=== PATIENT | female | born 1980 | race Caucasian/White ===

== ENCOUNTER 2017-08-11 02:41 | Inpatient (IN) | payer OTHER ==
[2017-08-11] MEDS ORDERED: Sodium Chloride 0.9% 1,000 ML IV STA ×2 (03:10→06:18)
[2017-08-11] MEDS ORDERED: HYDROmorphone 1 mg/ml ISec IVP STA ×2 (03:10→05:49)
--- NOTE | 2017-08-11 03:11 | ED PDOC ---
Arrival/HPI - General Chief Complaint: Abdominal Pain Time Seen by Provider: 08/11/17 03:03 Historian: Patient - History of Present Illness Narrative History of Present Illness (Text): 08/11/17 03:09 Chelsi Tamayo is a 37 year old female, who presents to the emergency department complaining of vomiting and upper abdominal pain tonight. Patient states that she ate liver for dinner earlier this evening which may be the cause of her symptoms. Patient denies any diarrhea, fevers, chills, urinary symptoms, or any other complaint at this time. Time/Duration: 1-3 hours Symptom Onset: Gradual Symptom Course: Unchanged Severity Level: Moderate Activities at Onset: Rest Context: Home Past Medical History - Provider Review Nursing Documentation Reviewed: Yes Family/Social History - Physician Review Nursing Documentation Reviewed: Yes Family/Social History: No Known Family HX Allergies/Home Meds Allergies/Adverse Reactions: Allergies No Known Allergies Allergy (Verified 08/11/17 11:39) Home Medications: Home Meds Medication Instructions Recorded Confirmed No Known Home Med 08/11/17 08/11/17 Review of Systems - Physician Review All systems were reviewed & negative as marked: Yes - Review of Systems Constitutional: absent: Fevers, Night Sweats Eyes: absent: Vision Changes ENT: absent: Hearing Changes Respiratory: absent: SOB, Cough Cardiovascular: absent: Chest Pain Gastrointestinal: Abdominal Pain (Upper abdominal pain), Vomiting Genitourinary Female: absent: Dysuria, Frequency Musculoskeletal: absent: Arthralgias, Back Pain Skin: absent: Rash, Pruritis Neurological: absent: Headache, Dizziness Endocrine: absent: Diaphoresis Hemo/Lymphatic: absent: Adenopathy Psychiatric: absent: Anxiety, Depression Physical Exam Vital Signs Reviewed: Yes Vital Signs Temp Pulse Resp BP Pulse Ox 08/11/17 07:32 98.8 F 101 H 16 125/81 99 08/11/17 03:30 76 16 124/76 99 08/11/17 03:28 98.4 F Temperature: Afebrile Blood Pressure: Normal Pulse: Regular Respiratory Rate: Normal Appearance: Positive for: Well-Appearing, Non-Toxic, Comfortable Pain Distress: None Mental Status: Positive for: Alert and Oriented X 3 - Systems Exam Head: Present: Atraumatic, Normocephalic Pupils: Present: PERRL Extroacular Muscles: Present: EOMI Conjunctiva: Present: Normal Mouth: Present: Moist Mucous Membranes Neck: Present: Normal Range of Motion Respiratory/Chest: Present: Clear to Auscultation, Good Air Exchange. No: Respiratory Distress, Accessory Muscle Use Cardiovascular: Present: Regular Rate and Rhythm, Normal S1, S2. No: Murmurs Abdomen: Present: Tenderness (right upper abdomen), Normal Bowel Sounds. No: Distention, Peritoneal Signs Back: Present: Normal Inspection Upper Extremity: Present: Normal Inspection. No: Cyanosis, Edema Lower Extremity: Present: Normal Inspection. No: Edema Neurological: Present: GCS=15, CN II-XII Intact, Speech Normal Skin: Present: Warm, Dry, Normal Color. No: Rashes Psychiatric: Present: Alert, Oriented x 3, Normal Insight, Normal Concentration Medical Decision Making ED Course and Treatment: 08/11/17 03:14 Impression: 37 year old female complaining of vomiting and upper abdominal pain tonight. Differential Diagnosis included but are not limited to: Plan: -- Labs -- Dilaudid, Pepcid, Zofran, and IV fluids -- Reassess and disposition Progress Notes: 08/11/17 06:16 Case was d/w .Accepts to her service .Request / on consult. - Lab Interpretations Lab Results: 08/11/17 03:50 08/11/17 03:50 Lab Results 08/11/17 03:50: WBC 12.5 H, RBC 4.88, Hgb 12.6, Hct 37.5, MCV 76.8 L, MCH 25.8, MCHC 33.6, RDW 15.4 H, Plt Count 378, MPV 10.1 08/11/17 03:50: Sodium 140, Potassium 3.8, Chloride 104, Carbon Dioxide 21, Anion Gap 19, BUN 22 H, Creatinine 0.7, Est GFR ( Amer) > 60, Est GFR ( Non-Af Amer) > 60, Random Glucose 151 H, Calcium 10.1, Total Bilirubin 0.6, AST 30, ALT 22, Alkaline Phosphatase 79, Total Protein 9.1 H, Albumin 4.9 H, Globulin 4.2, Albumin/Globulin Ratio 1.2, Lipase 130 I have reviewed the lab results: Yes - RAD Interpretation Radiology Orders: 08/11/17 04:19 GALLBLADDER & PANCREAS [US] Stat - Medication Orders Current Medication Orders: Hydromorphone HCl (Dilaudid) 0.5 mg IVP Q6H PRN PRN Reason: Pain, severe (8-10) Lactated Ringer's (Lactated Ringer's) 1,000 mls @ 120 mls/hr IV .Q8H20M [facility] Ketorolac Tromethamine (Toradol) 30 mg IVP Q6 PRN PRN Reason: Pain, moderate (4-7) Ondansetron HCl (Zofran Inj) 4 mg IVP Q6 PRN PRN Reason: Nausea/Vomiting Ondansetron HCl (Zofran Inj) 4 mg IVP ONCE PRN PRN Reason: Nausea/Vomiting Oxycodone/Acetaminophen (Percocet 5/325 Mg Tab) 2 tab PO Q4H PRN PRN Reason: Pain, Mild (1-3) Stop: 08/14/17 13:12 Pantoprazole Sodium (Protonix Inj) 40 mg IVP DAILY [facility] Last Admin: 08/11/17 10:30 Dose: Not Given Non-Admin Reason: Patient in OR/Vascular Discontinued Medications Famotidine (Pepcid) 20 mg IVP STAT STA Stop: 08/11/17 03:11 Last Admin: 08/11/17 03:23 Dose: 20 mg IVP Administration Document 08/11/17 03:23 RE (Rec: 08/11/17 03:24 RE [id number]) Charges for Administration # of IVP Administrations 1 Hydromorphone HCl (Dilaudid) 1 mg IVP STAT STA Stop: 08/11/17 03:11 Last Admin: 08/11/17 03:23 Dose: 1 mg MAR Pain Assessment Document 08/11/17 03:23 RE (Rec: 08/11/17 03:23 RE [id number]) Pain Reassessment Is this a pain reassessment? No Description Pain Behavior Moaning IVP Administration Document 08/11/17 03:23 RE (Rec: 08/11/17 03:23 RE [id number]) Charges for Administration # of IVP Administrations 1 Hydromorphone HCl (Dilaudid) 1 mg IVP STAT STA Stop: 08/11/17 05:50 Last Admin: 08/11/17 06:30 Dose: 1 mg MAR Pain Assessment Document 08/11/17 06:30 SC (Rec: 08/11/17 06:50 SC [id number]) Pain Reassessment Is this a pain reassessment? Yes Sleep Is patient sleeping during reassessment? No Presence of Pain Presence of Pain Yes Pain Scale Used Pain Scale Used Numeric Description Intensity of Pain at present 5 IVP Administration Document 08/11/17 06:30 SC (Rec: 08/11/17 06:50 SC [id number]) Charges for Administration # of IVP Administrations 1 Re-Assess: ROSHNI Pain Assessment Document 08/11/17 07:30 SRE (Rec: 08/11/17 07:44 SRE [id number]) Pain Reassessment Is this a pain reassessment? Yes Sleep Is patient sleeping during reassessment? No Presence of Pain Presence of Pain Yes Pain Scale Used Pain Scale Used Numeric Location Pain Location Body Site Abdomen Description Description Constant Hydromorphone HCl (Dilaudid) 0.5 mg IVP Q15M PRN PRN Reason: Pain, moderate (4-7) Stop: 08/11/17 14:57 Sodium Chloride (Sodium Chloride 0.9%) 1,000 mls @ 999 mls/hr IV .Q1H1M STA Stop: 08/11/17 04:10 Last Admin: 08/11/17 05:29 Dose: 999 mls/hr eMAR Start Stop Document 08/11/17 05:29 RE (Rec: 08/11/17 05:30 RE [id number]) Intravenous Solution Start Date 08/11/17 Start Time 03:00 End Date 08/18/17 End time 05:30 Total Infusion Time 71904 Sodium Chloride (Sodium Chloride 0.9%) 1,000 mls @ 100 mls/hr IV .Q10H STA Stop: 08/11/17 16:17 Last Admin: 08/11/17 08:05 Dose: 100 mls/hr eMAR Start Stop Document 08/11/17 08:05 SRE (Rec: 08/11/17 08:05 SRE [id number]) Intravenous Solution Start Date 08/11/17 Start Time 07:15 Ceftriaxone Sodium (Rocephin 1 Gram Ivpb (D5w)) 1 gm in 100 mls @ 200 mls/hr IVPB STAT STA PRN Reason: Protocol Stop: 08/11/17 08:23 Last Admin: 08/11/17 10:30 Dose: Not Given Non-Admin Reason: Patient in OR/Vascular Ondansetron HCl (Zofran Inj) 4 mg IVP ONCE ONE Stop: 08/11/17 03:11 Last Admin: 08/11/17 03:24 Dose: 4 mg IVP Administration Document 08/11/17 03:24 RE (Rec: 08/11/17 03:24 RE [id number]) Charges for Administration # of IVP Administrations 1 Ondansetron HCl (Zofran Inj) 4 mg IVP ONCE ONE Stop: 08/11/17 05:50 Last Admin: 08/11/17 06:30 Dose: 4 mg IVP Administration Document 08/11/17 06:30 SC (Rec: 08/11/17 06:50 SC [id number]) Charges for Administration # of IVP Administrations 1 Pneumococcal Polyvalent Vaccine (Pneumovax 23 Vaccine) 0.5 ml IM .ONCE ONE Stop: 08/11/17 15:53 - Scribe Statement The provider has reviewed the documentation as recorded by the Farida Simon Provider Scribe Attestation: All medical record entries made by the Artemioibpadmini were at my direction and personally dictated by me. I have reviewed the chart and agree that the record accurately reflects my personal performance of the history, physical exam, medical decision making, and the department course for this patient. I have also personally directed, reviewed, and agree with the discharge instructions and disposition. Disposition/Present on Arrival - Present on Arrival Any Indicators Present on Arrival: No History of DVT/PE: No History of Uncontrolled Diabetes: No Urinary Catheter: No History of Decub. Ulcer: No History Surgical Site Infection Following: None - Disposition Have Diagnosis and Disposition been Completed?: Yes Diagnosis: Biliary colic, Intractable abdominal pain, Cholelithiasis Disposition: HOSPITALIZED Disposition Time: 06:15 Patient Problems: Current Active Problems Problem Status Onset Biliary colic Acute Cholelithiasis Acute Intractable abdominal pain Acute Condition: STABLE
[2017-08-11 04:13] LABS: ALB/GLOB RATIO 1.2 (1.1-1.8); BILIRUBIN,TOTAL 0.6 mg/dL (0.2-1.3); CALCIUM 10.1 mg/dL (8.4-10.5); GFR AFRICAN-AMERICAN > 60; GLUCOSE,RANDOM 151 mg/dL (70-110); LIPASE 130 U/L (23-300); TOTAL PROTEIN 9.1 g/dL (5.8-8.3)
[2017-08-11 04:16] LABS: HEMATOCRIT 37.5 % (36.0-48.0); MEAN CELL VOLUME 76.8 fl (80.0-105.0); MEAN CORPUSCULAR HEMOGLOBIN 25.8 pg (25.0-35.0); MEAN CORPUSCULAR HGB CONC 33.6 g/dl (31.0-37.0); MEAN PLATELET VOLUME 10.1 fl (7.0-11.0); RED CELL DISTRIBUTION WIDTH 15.4 % (11.5-14.5); WHITE BLOOD COUNT 12.5 10^3/ul (4.5-11.0)
[2017-08-11 04:20] LABS: ALKALINE PHOSPHATASE 79 U/L (38-126); ALT/SGPT 22 U/L (7-56); AST/SGOT 30 U/L (14-36); BLOOD UREA NITROGEN 22 mg/dL (7-21); CARBON DIOXIDE 21 mmol/L (21-33); CHLORIDE 104 mmol/L (98-107); POTASSIUM 3.8 mmol/L (3.6-5.0); SODIUM 140 mmol/L (132-148)
--- NOTE | 2017-08-11 05:26 | US ---
EXAM: US Abdomen Limited, Right Upper Quadrant CLINICAL HISTORY: 37 years old, female; Pain; Abdominal pain; Epigastric TECHNIQUE: Real-time ultrasound of the right upper quadrant with image documentation. COMPARISON: No relevant prior studies available. FINDINGS: Liver: Visualized liver shows no focal lesions. Portal vein demonstrates hepatopetal flow. Liver demonstrates slightly increased echogenicity as can be seen in fatty infiltration or hepatocellular disease. No intrahepatic bile duct dilation. Gallbladder: No gallbladder wall thickening. There is a gallstone at the gallbladder neck measuring 0.8 CM and demonstrating shadowing. Sonographic Main's sign is negative. Common bile duct: Common bile duct is normal in caliber measuring 0.4 CM. No stones. No dilation. Pancreas: The pancreas is normal. Right kidney: Right kidney measures 11.2 CM. No stones. No hydronephrosis. Visualized aorta and IVC appear unremarkable. IMPRESSION: 1. No acute findings. 2. Cholelithiasis. No gallbladder wall thickening or pericholecystic fluid. Negative sonographic Amin's sign.
[2017-08-11] MEDS ORDERED: cefTRIAXone 1 gm 1 GM/100 ML BAG IVPB STA (07:54)
[2017-08-11] MEDS ORDERED: Lactated Ringer's 1,000 ML IV SCH (08:00)
--- NOTE | 2017-08-11 08:01 | CP.PCM.CON ---
<Cristopher Chery - Last Filed: 08/11/17 08:01> History of Present Illness - History of Present Illness History of Present Illness: Surgery 37 F w no sig PMH came with RUQ pain and vomiting that started yesterday. Pain started after she ate last night, then she started to vomit multiple times. Pain radiates to her R back. Non bloody non bilious. Denies F/C/D/CP/SOB/ hematochezia/hematemesis/melena/recent travel/sick contact. Pt had similar pain in the past but this is the worst. Surgery is consulted to evaluate for cholecystitis PSH: PMH: HTN Fhx: cholecystitis SS: No drugs, no etOH, no smoking LMP: 07/25 Review of Systems - Review of Systems Review of Systems: See HPI Past Patient History - Infectious Disease Hx of Infectious Diseases: None - Past Social History Smoking Status: Never Smoked - PSYCHIATRIC Hx Substance Use: No - SURGICAL HISTORY Hx Surgeries: Yes Hx Section: Yes Meds Allergies/Adverse Reactions: Allergies Allergy/AdvReac Type Severity Reaction Status Date / Time No Known Allergies Allergy Verified 08/11/17 11:39 - Medications Medications: Current Medications Hydromorphone HCl (Dilaudid) 0.5 mg IVP Q6H PRN PRN Reason: Pain, severe (8-10) Sodium Chloride (Sodium Chloride 0.9%) 1,000 mls @ 100 mls/hr IV .Q10H STA Stop: 08/11/17 16:17 Ceftriaxone Sodium (Rocephin 1 Gram Ivpb (D5w)) 1 gm in 100 mls @ 200 mls/hr IVPB STAT STA PRN Reason: Protocol Stop: 08/11/17 08:23 Lactated Ringer's (Lactated Ringer's) 1,000 mls @ 120 mls/hr IV .Q8H20M [facility] Ketorolac Tromethamine (Toradol) 30 mg IVP Q6 PRN PRN Reason: Pain, moderate (4-7) Ondansetron HCl (Zofran Inj) 4 mg IVP Q6 PRN PRN Reason: Nausea/Vomiting Pantoprazole Sodium (Protonix Inj) 40 mg IVP DAILY [facility] Physical Exam - Constitutional Appears: Non-toxic - Head Exam Head Exam: ATRAUMATIC, NORMAL INSPECTION, NORMOCEPHALIC - Eye Exam Eye Exam: EOMI, Normal appearance, PERRL Pupil Exam: NORMAL ACCOMODATION, PERRL - ENT Exam ENT Exam: Mucous Membranes Moist, Normal Exam - Neck Exam Neck exam: Positive for: Normal Inspection - Respiratory Exam Respiratory Exam: Clear to Auscultation Bilateral, NORMAL BREATHING PATTERN - Cardiovascular Exam Cardiovascular Exam: REGULAR RHYTHM - GI/Abdominal Exam GI & Abdominal Exam: Normal Bowel Sounds, Soft, Tenderness. absent: Distended, Firm, Guarding, Hernia Additional comments: RUQ TTP. EPigastric TTP. R back TTP - Extremities Exam Extremities exam: Positive for: normal inspection - Back Exam Back exam: NORMAL INSPECTION - Neurological Exam Neurological exam: Alert, CN II-XII Intact, Normal Gait, Oriented x3, Reflexes Normal - Psychiatric Exam Psychiatric exam: Normal Affect, Normal Mood - Skin Skin Exam: Dry, Intact, Normal Color, Warm Results - Vital Signs Recent Vital Signs: Last Vital Signs Temp 98.8 F 08/11/17 07:32 Pulse 101 H 08/11/17 07:32 Resp 16 08/11/17 07:32 BP 125/81 08/11/17 07:32 Pulse Ox 99 08/11/17 07:32 - Labs Result Diagrams: 08/11/17 03:50 08/11/17 03:50 Assessment & Plan - Assessment and Plan (Free Text) Assessment: Cholecystitis US: stone, pericholecystic fluids. WBC 13 LFT wnl -OR today 1030am -NPO -IVF -ABX -Protonix DW Dr. Pérez <Yg Pérez - Last Filed: 08/12/17 08:57> Meds - Medications Medications: Current Medications Hydromorphone HCl (Dilaudid) 0.5 mg IVP Q6H PRN PRN Reason: Pain, severe (8-10) Last Admin: 08/11/17 23:46 Dose: 0.5 mg Lactated Ringer's (Lactated Ringer's) 1,000 mls @ 120 mls/hr IV .Q8H20M [facility] Last Admin: 08/12/17 06:08 Dose: 120 mls/hr Ketorolac Tromethamine (Toradol) 30 mg IVP Q6 PRN PRN Reason: Pain, moderate (4-7) Ondansetron HCl (Zofran Inj) 4 mg IVP Q6 PRN PRN Reason: Nausea/Vomiting Ondansetron HCl (Zofran Inj) 4 mg IVP ONCE PRN PRN Reason: Nausea/Vomiting Oxycodone/Acetaminophen (Percocet 5/325 Mg Tab) 2 tab PO Q4H PRN PRN Reason: Pain, Mild (1-3) Stop: 08/14/17 13:12 Pantoprazole Sodium (Protonix Inj) 40 mg IVP DAILY [facility] Last Admin: 08/11/17 10:30 Dose: Not Given Results - Vital Signs Recent Vital Signs: Last Vital Signs Temp 100.4 F H 08/12/17 08:00 Pulse 104 H 08/12/17 08:00 Resp 20 08/12/17 08:00 BP 113/72 08/12/17 08:00 Pulse Ox 97 08/12/17 08:00 - Labs Result Diagrams: 08/12/17 06:00 08/12/17 06:00 Assessment & Plan - Assessment and Plan (Free Text) Assessment: pain/Leukocytosis-Pt insists on surgeery now/cannot tolerate further pain spoke with [employer] who advised him of coverage for Emergency This cnsult done under my direct supervision Eduardo Pérez MD FACS
[2017-08-11 08:07] LABS: PH,URINE 7.5 (4.7-8.0); URINE BILIRUBIN NEGATIVE (NEGATIVE); URINE BLOOD SMALL (NEGATIVE); URINE GLUCOSE (UA) NEGATIVE (NEGATIVE); URINE KETONE TRACE mg/dL (NEGATIVE); URINE LEUKOCYTE ESTERASE NEGATIVE Leu/uL (NEGATIVE); URINE PROTEIN TRACE mg/dL (<30 mg/dL)
[2017-08-11 08:09] LABS: URINE APPEARANCE SL CLOUDY (CLEAR); URINE COLOR YELLOW (YELLOW)
[2017-08-11 08:11] LABS: URINE BACTERIA FEW (NEG); URINE RBC 0 - 2 /hpf (0-2); URINE WBC NEGATIVE /hpf (0-6)
[2017-08-11 08:49] LABS: PARTIAL THROMBOPLASTIN TIME 27.6 Seconds (25.1-36.5)
[2017-08-11 09:00] LABS: INR 1.22 (0.93-1.08)
--- NOTE | 2017-08-11 09:15 | RAD ---
PROCEDURE: CHEST RADIOGRAPH, 1 VIEW HISTORY: Pre-op COMPARISON: None available. FINDINGS: LUNGS: Clear. PLEURA: No pneumothorax or pleural fluid seen. CARDIOVASCULAR: Normal. OSSEOUS STRUCTURES: No significant abnormalities. VISUALIZED UPPER ABDOMEN: Normal. OTHER FINDINGS: None. IMPRESSION: No active disease.
[2017-08-11] MEDS ORDERED: Bupivacaine 0.5% Inj(30mL) ONE (10:26)
[2017-08-11] MEDS ORDERED: Iohexol 240 (50 ml) ONE (10:26)
[2017-08-11] MEDS ORDERED: Midazolam 2 MG/2 ML VIAL ONE (10:47)
[2017-08-11] MEDS ORDERED: Propofol 10 mg/ml Inj (20 ML) ONE (10:47)
[2017-08-11] MEDS ORDERED: Rocuronium 10 mg/ml (5 ml) ONE (10:49)
[2017-08-11] MEDS ORDERED: Succinylcholine 200 mg/10 ml Inj IV ONE (10:57)
[2017-08-11] MEDS ORDERED: Neostigmine Methylsulfate 3mg/3ml Syringe IV ONE (12:26)
[2017-08-11] MEDS ORDERED: Glycopyrrolate 0.2 mg/ml (2ml vial) ONE (12:27)
[2017-08-11] MEDS ORDERED: HYDROmorphone 0.5 mg/0.5 ml ISec IVP PRN (12:57)
--- NOTE | 2017-08-11 13:05 | PCM.SURG1 ---
Surgeon's Initial Post Op Note - Surgeon's Notes Surgeon: Dr. Pérez Process Control Board Operator: Dr. Chery PGY2, Dr. Cobb PGY1 Type of Anesthesia: General Endo Pre-Operative Diagnosis: Acute Cholecystitis Operative Findings: see op note Post-Operative Diagnosis: as above Operation Performed: laparoscpic cholecystectomy w/ intraoperative cholangiogram Specimen/Specimens Removed: gall bladder; bile for culture Estimated Blood Loss: EBL {In ML}: 10 Drains Used: No Drains Post-Op Condition: Good Date of Surgery/Procedure: 08/11/17 Time of Surgery/Procedure: 13:05
[2017-08-11] MEDS ORDERED: Oxycodone/Acetaminophen 5/325 mg Tab PO PRN (13:11)
--- NOTE | 2017-08-11 13:28 | CP.PCM.CON ---
<Katelynn Richardson - Last Filed: 08/11/17 13:43> History of Present Illness - History of Present Illness History of Present Illness: S&E at bedside earlier today,request for GI eval for abdominal pain. HPI: This is a 37 year old female with no significant history came to the ER with sudden onset of RUQ pain, and episode of vomiting that started yesterday. at bedside. Patient endorses that she did have epigasric pain for 1 week prior and was tolerable. She recall eating late dinner, had liver, bread and avocado. Had multiple episode of vomiting at least "10"episodes. No hematemsis but did notice it was dark, thinking may be form the liver she ate. No fever or chill, no change in bowel habits, weight loss or anorexia. Had abdominal uS that reported GB stone neck of gallbladder, 0.8 cm, CBD 0.4cm, no stone, no GB wall thickening, CBD dilation. Seen by surgery awaiting OR. PMH: denies cardiac, respiratory or GI h/o PSH: Allergies: NKDA MEDS: reviewed as per MAR Family HX: denies Social HX: denies smoking, drugs, etoh ROS: systems reviewed with positive findings, see HPI. Past Patient History - Infectious Disease Hx of Infectious Diseases: None - Past Social History Smoking Status: Never Smoked - CARDIAC Hx Pacemaker: No - NEUROLOGICAL Hx Paralysis: No - HEMATOLOGICAL/ONCOLOGICAL Hx Blood Transfusions: No Hx Blood Transfusion Reaction: No - MUSCULOSKELETAL/RHEUMATOLOGICAL Hx Musculoskeletal Disorders: No - PSYCHIATRIC Hx Emotional Abuse: No Hx Physical Abuse: No Hx Substance Use: No - SURGICAL HISTORY Hx Surgeries: Yes - ANESTHESIA Hx Anesthesia Reactions: No Hx Malignant Hyperthermia: No Meds Allergies/Adverse Reactions: Allergies Allergy/AdvReac Type Severity Reaction Status Date / Time No Known Allergies Allergy Verified 08/11/17 11:39 - Medications Medications: Current Medications Hydromorphone HCl (Dilaudid) 0.5 mg IVP Q6H PRN PRN Reason: Pain, severe (8-10) Hydromorphone HCl (Dilaudid) 0.5 mg IVP Q15M PRN PRN Reason: Pain, moderate (4-7) Stop: 08/11/17 14:57 Sodium Chloride (Sodium Chloride 0.9%) 1,000 mls @ 100 mls/hr IV .Q10H STA Stop: 08/11/17 16:17 Last Admin: 08/11/17 08:05 Dose: 100 mls/hr Lactated Ringer's (Lactated Ringer's) 1,000 mls @ 120 mls/hr IV .Q8H20M [facility] Ketorolac Tromethamine (Toradol) 30 mg IVP Q6 PRN PRN Reason: Pain, moderate (4-7) Ondansetron HCl (Zofran Inj) 4 mg IVP Q6 PRN PRN Reason: Nausea/Vomiting Ondansetron HCl (Zofran Inj) 4 mg IVP ONCE PRN PRN Reason: Nausea/Vomiting Pantoprazole Sodium (Protonix Inj) 40 mg IVP DAILY [facility] Physical Exam - Constitutional Appears: No Acute Distress - Head Exam Head Exam: NORMOCEPHALIC - Eye Exam Eye Exam: Normal appearance. absent: Scleral icterus - ENT Exam ENT Exam: Mucous Membranes Moist - Neck Exam Neck exam: Positive for: Normal Inspection - Respiratory Exam Respiratory Exam: Clear to Auscultation Bilateral, NORMAL BREATHING PATTERN. absent: Respiratory Distress - Cardiovascular Exam Cardiovascular Exam: +S1, +S2 - GI/Abdominal Exam GI & Abdominal Exam: Normal Bowel Sounds, Soft, Tenderness (epigastric, mild, s/ p pain med). absent: Guarding, Rebound - Extremities Exam Extremities exam: Positive for: pedal pulses present. Negative for: calf tenderness, pedal edema - Neurological Exam Neurological exam: Alert, Oriented x3 - Skin Skin Exam: Dry, Warm Results - Vital Signs Recent Vital Signs: Last Vital Signs Temp 98.5 F 08/11/17 10:30 Pulse 98 H 08/11/17 10:30 Resp 18 08/11/17 10:30 BP 137/84 08/11/17 10:30 Pulse Ox 98 08/11/17 10:30 - Labs Result Diagrams: 08/11/17 03:50 08/11/17 03:50 Labs: Laboratory Results - last 24 hr 08/11/17 08/11/17 07:51 07:59 PT 13.5 H INR 1.22 H APTT 27.6 Urine Color Yellow Urine Appearance Sl cloudy Urine pH 7.5 Ur Specific [place] 1.020 Urine Protein Trace H Urine Glucose (UA) Negative Urine Ketones Trace H Urine Blood Small H Urine Nitrate Negative Urine Bilirubin Negative Urine Urobilinogen 1.0 H Ur Leukocyte Esterase Negative Urine RBC 0 - 2 Urine WBC Negative Ur Epithelial Cells 1 - 3 Urine Bacteria Few Urine HCG, Qual Negative Assessment & Plan - Assessment and Plan (Free Text) Assessment: ASSESSMENT: Abdominal pain Cholelithiasis Cholecystitis PLAN: NPO continue IVF pain mgt PPI SCD while in bed for lap cholecystectomy as per surgery today monitor LFT Thank you for this consult and for allowing us to participate in your patient care, further recommendation based upon clinical course. Seen and discussed w/ Dr. Vences. <Cyn Vences V - Last Filed: 08/11/17 23:09> Meds - Medications Medications: Current Medications Hydromorphone HCl (Dilaudid) 0.5 mg IVP Q6H PRN PRN Reason: Pain, severe (8-10) Lactated Ringer's (Lactated Ringer's) 1,000 mls @ 120 mls/hr IV .Q8H20M [facility] Ketorolac Tromethamine (Toradol) 30 mg IVP Q6 PRN PRN Reason: Pain, moderate (4-7) Ondansetron HCl (Zofran Inj) 4 mg IVP Q6 PRN PRN Reason: Nausea/Vomiting Ondansetron HCl (Zofran Inj) 4 mg IVP ONCE PRN PRN Reason: Nausea/Vomiting Oxycodone/Acetaminophen (Percocet 5/325 Mg Tab) 2 tab PO Q4H PRN PRN Reason: Pain, Mild (1-3) Stop: 08/14/17 13:12 Pantoprazole Sodium (Protonix Inj) 40 mg IVP DAILY [facility] Last Admin: 08/11/17 10:30 Dose: Not Given Results - Vital Signs Recent Vital Signs: Last Vital Signs Temp 98.5 F 08/11/17 16:00 Pulse 105 H 08/11/17 16:00 Resp 20 08/11/17 16:00 BP 124/73 08/11/17 16:00 Pulse Ox 100 08/11/17 16:00 - Labs Result Diagrams: 08/11/17 03:50 08/11/17 03:50 Labs: Laboratory Results - last 24 hr 08/11/17 08/11/17 07:51 07:59 PT 13.5 H INR 1.22 H APTT 27.6 Urine Color Yellow Urine Appearance Sl cloudy Urine pH 7.5 Ur Specific [place] 1.020 Urine Protein Trace H Urine Glucose (UA) Negative Urine Ketones Trace H Urine Blood Small H Urine Nitrate Negative Urine Bilirubin Negative Urine Urobilinogen 1.0 H Ur Leukocyte Esterase Negative Urine RBC 0 - 2 Urine WBC Negative Ur Epithelial Cells 1 - 3 Urine Bacteria Few Urine HCG, Qual Negative Attending/Attestation - Attestation I have personally seen and examined this patient.: Yes I have fully participated in the care of the patient.: Yes I have reviewed all pertinent clinical information: Yes Notes (Text): This is an addendum to GI progress report dictated by Katelynn Richardson APN.The patient was seen and examined earlier. Medical records, lab studies, imagings were reviewed. Last 24 hours events reviewed. Agreed with the above treatment plan as outlined in Katelynn Richardson APN's notes the with the addition of the following Status post laparoscopic cholecystectomy patient was tolerating the diet LFTs remain unremarkable Follow-up LFT Postop as per surgery 08/11/17 23:07
--- NOTE | 2017-08-11 13:39 | RAD ---
PROCEDURE: Operative cholangiogram HISTORY: ? CBD OBST COMPARISON: TECHNIQUE: Fluoroscopy was provided in the operating room. 33 seconds of fluoro time were utilized. One image was submitted FINDINGS: The image does not include the entire common duct. The upper common duct is unremarkable. Contrast can be seen within the duodenum IMPRESSION: As above
[2017-08-11 15:52] VITALS: BMI 26.5
[2017-08-11] MEDS ORDERED: Influenza Vaccine 60 mcg/0.5 mL SYR (4YR UP) IM ONE (15:52)
[2017-08-11] MEDS ORDERED: Pneumococcal 23-Valent Vaccine IM ONE (15:52)
[2017-08-11] MEDS: HYDROmorphone 0.5 mg/0.5 ml ISec IVP PRN (23:46)
--- NOTE | 2017-08-12 03:16 | HP ---
HISTORY OF PRESENT ILLNESS: The patient is a 37-year-old [place] female who saw in the recovery sedated. I had discussion with the patient's who stated that yesterday night, they ate late and had pizza, around 3 o'clock she woke up screaming in pain. He gave some Pepto-Bismol at home with no relief, so he brought her to emergency room for further evaluation. Complain of having right upper quadrant pain. Complain of intractable nausea and vomiting since last night. Pain was radiating to the back. No history of hemoptysis. No fever. No chills. No rectal bleeding. No cough. No congestion. No hemoptysis. No hematemesis. PAST SURGICAL HISTORY: Significant only for having two C-sections. PAST MEDICAL HISTORY: Significant for hypertension. SOCIAL HISTORY: She is and lives with her . She has two children, they were born by . PHYSICAL EXAMINATION: GENERAL: The patient is awake, alert, oriented, and communicative. Complain of abdominal discomfort. VITAL SIGNS: She is afebrile, pulse 102, respirations 18, and blood pressure 107/63. LUNGS: Bilateral fair airflow. No rhonchi or crackle. HEART: S1 and S2 audible. ABDOMEN: Soft and nontender. Slight right upper quadrant discomfort. NEUROLOGIC: She is awake, alert, oriented, and communicative. LABORATORY DATA: WBC 12.5, hemoglobin 12.6, hematocrit 37.5, and platelets 378. Chemistry: Sodium 140, potassium 3.8, chloride 104, CO2 of 21, BUN 22, creatinine 0.7, and blood sugar 151. LFTs are within normal limits. Urinalysis is unremarkable. ASSESSMENT: 1. Acute cholecystitis, status post laparoscopic cholecystectomy. 2. History of hypertension. PLAN: We will keep the patient n.p.o. We will give IV fluids. May start clear liquid after surgery. Currently, she is on IV antibiotics, Protonix. She is getting analgesics. We will follow up her CBC and CMP in a.m. If she remains stable and tolerate the food, she will be discharged home in a.m. Anmol Barton MD
[2017-08-12 07:39] LABS: BASO # 0.02 K/mm3 (0.0-2.0); BASO % 0.2 % (0.0-3.0); EOS # 0.1 (0.0-0.7); EOS % 1.1 % (1.5-5.0); GRAN # 6.51 (1.4-6.5); GRAN % 70.6 % (50.0-68.0); HEMATOCRIT 35.3 % (36.0-48.0); LYMPH # 1.9 (1.2-3.4); LYMPH % 20.7 % (22.0-35.0); MEAN CELL VOLUME 78.6 fl (80.0-105.0); MEAN CORPUSCULAR HEMOGLOBIN 25.2 pg (25.0-35.0); MEAN PLATELET VOLUME 9.2 fl (7.0-11.0); MONO # 0.7 (0.1-0.6); MONO % 7.4 % (1.0-6.0); RED CELL DISTRIBUTION WIDTH 15.9 % (11.5-14.5); WHITE BLOOD COUNT 9.2 10^3/ul (4.5-11.0)
[2017-08-12 08:20] LABS: ALB/GLOB RATIO 1.1 (1.1-1.8); ALKALINE PHOSPHATASE 61 U/L (38-126); ALT/SGPT 59 U/L (7-56); AST/SGOT 54 U/L (14-36); BILIRUBIN,TOTAL 0.7 mg/dL (0.2-1.3); BLOOD UREA NITROGEN 12 mg/dL (7-21); CALCIUM 8.7 mg/dL (8.4-10.5); CARBON DIOXIDE 22 mmol/L (21-33); CHLORIDE 107 mmol/L (98-107); GFR AFRICAN-AMERICAN > 60; GLUCOSE,RANDOM 117 mg/dL (70-110); POTASSIUM 3.4 mmol/L (3.6-5.0); SODIUM 139 mmol/L (132-148); TOTAL PROTEIN 7.2 g/dL (5.8-8.3)
--- NOTE | 2017-08-12 09:03 | CP.PCM.PN ---
Subjective - Date & Time of Evaluation Date of Evaluation: 08/12/17 Time of Evaluation: 06:45 - Subjective Subjective: General Surgery- Dr. Pérez Patient seen and examined at bedside this AM. No acute events overnight. Tolerating regular diet. appropriately tender around incision site. Denies F/C CP/SOB N/V/D Objective - Vital Signs/Intake and Output Vital Signs (last 24 hours): Temp Pulse Resp BP Pulse Ox 100.4 F H 104 H 20 113/72 97 08/12/17 08:00 08/12/17 08:00 08/12/17 08:00 08/12/17 08:00 08/12/17 08:00 - Medications Medications: Current Medications Hydromorphone HCl (Dilaudid) 0.5 mg IVP Q6H PRN PRN Reason: Pain, severe (8-10) Last Admin: 08/11/17 23:46 Dose: 0.5 mg Lactated Ringer's (Lactated Ringer's) 1,000 mls @ 120 mls/hr IV .Q8H20M [facility] Last Admin: 08/12/17 06:08 Dose: 120 mls/hr Ketorolac Tromethamine (Toradol) 30 mg IVP Q6 PRN PRN Reason: Pain, moderate (4-7) Ondansetron HCl (Zofran Inj) 4 mg IVP Q6 PRN PRN Reason: Nausea/Vomiting Ondansetron HCl (Zofran Inj) 4 mg IVP ONCE PRN PRN Reason: Nausea/Vomiting Oxycodone/Acetaminophen (Percocet 5/325 Mg Tab) 2 tab PO Q4H PRN PRN Reason: Pain, Mild (1-3) Stop: 08/14/17 13:12 Pantoprazole Sodium (Protonix Inj) 40 mg IVP DAILY [facility] Last Admin: 08/11/17 10:30 Dose: Not Given - Labs Labs: PT 13.5 SECONDS (9.4-12.5) H 08/11/17 07:51 INR 1.22 (0.93-1.08) H 08/11/17 07:51 APTT 27.6 Seconds (25.1-36.5) 08/11/17 07:51 - Constitutional Appears: Non-toxic, No Acute Distress - Head Exam Head Exam: ATRAUMATIC - Eye Exam Eye Exam: EOMI. absent: Scleral icterus - ENT Exam ENT Exam: Mucous Membranes Moist - Respiratory Exam Respiratory Exam: NORMAL BREATHING PATTERN. absent: Accessory Muscle Use, Respiratory Distress - Cardiovascular Exam Cardiovascular Exam: +S1, +S2. absent: Bradycardia, Tachycardia - GI/Abdominal Exam GI & Abdominal Exam: Soft, Tenderness. absent: Distended, Firm, Guarding, Rigid Additional comments: appropriately tender around incision site - Extremities Exam Extremities Exam: Normal Inspection. absent: Calf Tenderness - Neurological Exam Neurological Exam: Alert, Awake, Oriented x3 - Skin Skin Exam: Intact, Warm Additional comments: incision x4, C/D/I Assessment and Plan - Assessment and Plan (Free Text) Assessment: 37F s/p laparosopic cholecystectomy POD#1 Plan: - patient cleared for D/C from surgical stand point - can remove top bandage tomorrow - pain control PRN - OK to shower, glue will fall off on its own - no heavy lifting greater than 15lbs for 4-6 weeks - follow up with Dr. Pérez in 1-2 weeks Mark Cobb PGY1
[2017-08-12] MEDS: HYDROmorphone 0.5 mg/0.5 ml ISec IVP PRN (10:35)
[2017-08-12] MEDS ORDERED: Potassium Chloride 20 mEq/15 ml LIQ UD PO STA (10:43)
[2017-08-12 17:19] LABS: VENOUS BLOOD GAS BASE EXCESS 0.1 mmol/L (0.0-2.0); VENOUS BLOOD PH 7.45 (7.32-7.43)
[2017-08-12 17:27] LABS: ALB/GLOB RATIO 1.1 (1.1-1.8); ALKALINE PHOSPHATASE 66 U/L (38-126); ALT/SGPT 65 U/L (7-56); AMYLASE 59 U/L (35-125); AST/SGOT 47 U/L (14-36); BILIRUBIN,TOTAL 0.7 mg/dL (0.2-1.3); BLOOD UREA NITROGEN 10 mg/dL (7-21); CALCIUM 9.3 mg/dL (8.4-10.5); CARBON DIOXIDE 23 mmol/L (21-33); CHLORIDE 104 mmol/L (98-107); GFR AFRICAN-AMERICAN > 60; GLUCOSE,RANDOM 119 mg/dL (70-110); LIPASE 59 U/L (23-300); MAGNESIUM 1.9 mg/dL (1.7-2.2); PHOSPHOROUS 2.3 mg/dL (2.5-4.5); SODIUM 138 mmol/L (132-148)
[2017-08-12 17:28] LABS: BASO # 0.04 K/mm3 (0.0-2.0); BASO % 0.4 % (0.0-3.0); EOS # 0.1 (0.0-0.7); EOS % 1.3 % (1.5-5.0); GRAN # 7.65 (1.4-6.5); GRAN % 72.8 % (50.0-68.0); HEMATOCRIT 37.8 % (36.0-48.0); LYMPH # 1.7 (1.2-3.4); LYMPH % 16.5 % (22.0-35.0); MEAN CELL VOLUME 78.6 fl (80.0-105.0); MEAN CORPUSCULAR HEMOGLOBIN 25.4 pg (25.0-35.0); MEAN CORPUSCULAR HGB CONC 32.3 g/dl (31.0-37.0); MEAN PLATELET VOLUME 9.3 fl (7.0-11.0); RED CELL DISTRIBUTION WIDTH 15.7 % (11.5-14.5); WHITE BLOOD COUNT 10.5 10^3/ul (4.5-11.0)
[2017-08-12 17:34] LABS: INR 1.27 (0.93-1.08); PARTIAL THROMBOPLASTIN TIME 32.2 Seconds (25.1-36.5)
[2017-08-12] MEDS: cefTRIAXone 1 gm 1 GM/100 ML BAG IVPB SCH (18:27)
[2017-08-12] MEDS: metroNIDAZOLE IV 500 mg/100 ml 500 MG/100 ML BAG IVPB SCH ×2 (18:28→22:58)
[2017-08-12 19:05] LABS: URINE BILIRUBIN NEGATIVE (NEGATIVE); URINE BLOOD SMALL (NEGATIVE); URINE GLUCOSE (UA) NEGATIVE (NEGATIVE); URINE KETONE NEGATIVE (NEGATIVE); URINE LEUKOCYTE ESTERASE NEGATIVE Leu/uL (NEGATIVE); URINE PROTEIN NEGATIVE mg/dL (<30 mg/dL); URINE UROBILINOGEN 0.2 E.U./dL (<1 E.U./dL)
[2017-08-12 19:06] LABS: URINE APPEARANCE CLEAR (CLEAR); URINE COLOR YELLOW (YELLOW)
[2017-08-12 19:13] LABS: URINE BACTERIA FEW (NEG)
[2017-08-12] MEDS ORDERED: Lactated Ringer's 1,000 ML IV SCH (19:15)
--- NOTE | 2017-08-12 20:45 | PN ---
DATE: SUBJECTIVE: The patient is a 37-year-old, seen and examined, was seen earlier, doing well. Eating and tolerating. She is on liquid diet. Some abdominal discomfort at surgical site. Did not have bowel movement yet; however no urinary discomfort. The patient was about to be discharge, but she spiked fever of 101, so discharge is canceled and we will do the sepsis workup including blood culture, urine culture and x-ray of the chest. PHYSICAL EXAMINATION: GENERAL: She is awake, alert, oriented, communicative, and ambulatory. VITAL SIGNS: Temperature of 101, pulse 104, respirations 20, blood pressure 113/72. LUNGS: Bilateral fair airflow. No rhonchi or crackles. HEART: S1, S2, audible. ABDOMEN: Soft, nontender. No rebound. No guarding. NEUROLOGIC: She is awake, alert and oriented, able to communicate. LABORATORY DATA: WBC is 9.2, hemoglobin 11.3, hematocrit 35.3, platelet of 285. Chemistry; sodium 139, potassium 3.4, chloride 107, CO2 of 22, BUN 12, creatinine 1.8, blood sugar of 117. ASSESSMENT: 1. Status post laparoscopic cholecystectomy. 2. New postop fever. PLAN: We will start the patient on Rocephin and Flagyl. We will send blood culture and urine culture. Analgesics as needed. Anmol Barton MD
[2017-08-13] MEDS: metroNIDAZOLE IV 500 mg/100 ml 500 MG/100 ML BAG IVPB SCH (05:41)
[2017-08-13 07:58] LABS: ALB/GLOB RATIO 1.1 (1.1-1.8); ALKALINE PHOSPHATASE 60 U/L (38-126); ALT/SGPT 56 U/L (7-56); AST/SGOT 40 U/L (14-36); BILIRUBIN,TOTAL 0.6 mg/dL (0.2-1.3); BLOOD UREA NITROGEN 12 mg/dL (7-21); CALCIUM 9.1 mg/dL (8.4-10.5); CARBON DIOXIDE 25 mmol/L (21-33); CHLORIDE 105 mmol/L (98-107); GFR AFRICAN-AMERICAN > 60; GLUCOSE,RANDOM 104 mg/dL (70-110); POTASSIUM 3.7 mmol/L (3.6-5.0); SODIUM 140 mmol/L (132-148); TOTAL PROTEIN 7.3 g/dL (5.8-8.3)
[2017-08-13 08:06] LABS: BASO # 0.03 K/mm3 (0.0-2.0); BASO % 0.4 % (0.0-3.0); EOS # 0.3 (0.0-0.7); EOS % 3.1 % (1.5-5.0); GRAN # 5.5 (1.4-6.5); GRAN % 66.5 % (50.0-68.0); HEMATOCRIT 35.8 % (36.0-48.0); LYMPH # 1.9 (1.2-3.4); LYMPH % 22.6 % (22.0-35.0); MEAN CELL VOLUME 78.9 fl (80.0-105.0); MEAN CORPUSCULAR HEMOGLOBIN 25.1 pg (25.0-35.0); MEAN CORPUSCULAR HGB CONC 31.8 g/dl (31.0-37.0); MEAN PLATELET VOLUME 9.6 fl (7.0-11.0); MONO # 0.6 (0.1-0.6); MONO % 7.4 % (1.0-6.0); RED CELL DISTRIBUTION WIDTH 15.6 % (11.5-14.5); WHITE BLOOD COUNT 8.3 10^3/ul (4.5-11.0)
[2017-08-13 08:16] VITALS: BP 101/73; PULSE 86; RESP 20; TEMP 98.5; O2SAT 97
--- NOTE | 2017-08-13 08:27 | CP.PCM.PN ---
Subjective - Date & Time of Evaluation Date of Evaluation: 08/13/17 Time of Evaluation: 06:50 - Subjective Subjective: General Surgery No issues overnight. Tolerating regular diet. No complaints, wants to go home today. Objective - Vital Signs/Intake and Output Vital Signs (last 24 hours): Temp Pulse Resp BP Pulse Ox 98.5 F 86 20 101/73 97 08/13/17 08:00 08/13/17 08:00 08/13/17 08:00 08/13/17 08:00 08/13/17 08:00 Intake and Output: 08/13/17 08/13/17 06:59 18:59 Intake Total 1100 Balance 1100 - Medications Medications: Current Medications Acetaminophen (Tylenol 325mg Tab) 650 mg PO Q4H PRN PRN Reason: Fever >100.4 F Last Admin: 08/12/17 22:11 Dose: 650 mg Hydromorphone HCl (Dilaudid) 0.5 mg IVP Q6H PRN PRN Reason: Pain, severe (8-10) Last Admin: 08/12/17 10:35 Dose: 0.5 mg Ceftriaxone Sodium (Rocephin 1 Gram Ivpb) 1 gm in 100 mls @ 100 mls/hr IVPB DAILY [facility] PRN Reason: Protocol Last Admin: 08/12/17 18:27 Dose: 100 mls/hr Metronidazole (Flagyl) 500 mg in 100 mls @ 100 mls/hr IVPB Q8 [facility] PRN Reason: Protocol Last Admin: 08/13/17 05:41 Dose: 100 mls/hr Lactated Ringer's (Lactated Ringer's) 1,000 mls @ 75 mls/hr IV .[id number] [facility] Last Admin: 08/12/17 23:02 Dose: 75 mls/hr Ketorolac Tromethamine (Toradol) 30 mg IVP Q6 PRN PRN Reason: Pain, moderate (4-7) Ondansetron HCl (Zofran Inj) 4 mg IVP Q6 PRN PRN Reason: Nausea/Vomiting Ondansetron HCl (Zofran Inj) 4 mg IVP ONCE PRN PRN Reason: Nausea/Vomiting Oxycodone/Acetaminophen (Percocet 5/325 Mg Tab) 2 tab PO Q4H PRN PRN Reason: Pain, Mild (1-3) Stop: 08/14/17 13:12 Pantoprazole Sodium (Protonix Inj) 40 mg IVP DAILY [facility] Last Admin: 08/12/17 10:19 Dose: 40 mg - Labs Labs: 08/13/17 07:00 08/13/17 07:00 PT 13.9 SECONDS (9.4-12.5) H 08/12/17 17:00 INR 1.27 (0.93-1.08) H 08/12/17 17:00 APTT 32.2 Seconds (25.1-36.5) 08/12/17 17:00 - Constitutional Appears: Non-toxic, No Acute Distress - Head Exam Head Exam: ATRAUMATIC, NORMOCEPHALIC - Eye Exam Eye Exam: EOMI. absent: Scleral icterus - Respiratory Exam Respiratory Exam: NORMAL BREATHING PATTERN. absent: Respiratory Distress - GI/Abdominal Exam GI & Abdominal Exam: Guarding, Soft, Tenderness (mild at incision sites). absent: Distended, Firm, Rigid Additional comments: incisions c/d/i with skin glue - Neurological Exam Neurological Exam: Alert, Awake - Skin Skin Exam: Dry, Warm Assessment and Plan - Assessment and Plan (Free Text) Assessment: 37F s/p laparosopic cholecystectomy POD#2 Plan: - Clear for D/C from surgical stand point - No further fevers - No heavy lifting greater than 15lbs for 4-6 weeks - Follow up with Dr. Pérez in 1-2 weeks D/W Dr. Beto Mehta PGY4
--- NOTE | 2017-08-13 08:31 | CP.PCM.PCO ---
Physician Communication Note - Physician Communication Note Physician Communication Note: OK d/c: f/u office/low fat diet
--- NOTE | 2017-08-13 09:55 | RAD ---
HISTORY: sepsis workup COMPARISON: Comparison chest dated 04/23/2017 TECHNIQUE: Chest PA and lateral FINDINGS: LUNGS: Mild bibasilar atelectasis left greater than right. PLEURA: No significant pleural effusion identified. No pneumothorax apparent. CARDIOVASCULAR: Normal. OSSEOUS STRUCTURES: No significant abnormalities. VISUALIZED UPPER ABDOMEN: Normal. OTHER FINDINGS: None. IMPRESSION: Mild bibasilar atelectasis left greater than right.
[2017-08-13] MEDS: cefTRIAXone 1 gm 1 GM/100 ML BAG IVPB SCH (10:00)
--- NOTE | 2017-08-14 02:36 | DS ---
SUBJECTIVE: The patient is 37-year-old, seen and examined, sitting in chair, seems to be comfortable. No nausea, vomiting, or diarrhea. No cough. No congestion. She has spiked fever yesterday that is why her discharge was on hold. PHYSICAL EXAMINATION: GENERAL: Today on examination, she is awake, alert, oriented, communicative, tolerating clear liquid. VITAL SIGNS: She is afebrile, pulse 86, respirations 20, blood pressure 101/73. LUNGS: Bilateral fair airflow. No rhonchi or crackles. HEART: S1, S2, audible. ABDOMEN: Soft, slightly tender at the surgical site. NEUROLOGIC: She is awake, alert, and oriented, communicative. LABORATORY EXAM: WBC is 8.3, hemoglobin 11.4, hematocrit 35.8, platelet 294. Chemistry: Sodium 140, potassium 3.7, chloride 105, CO2 of 25, BUN 12, creatinine 0.8, blood sugar of 104. LFTs have resolved. Her blood culture and urine culture are pending. ASSESSMENT: 1. Status post laparoscopic cholecystectomy. 2. Postop fever, source unknown for now. PLAN: The patient is being discharged home on Levaquin 500 daily for 1 week and analgesics as needed. She will follow up with her primary medical. Anmol Barton MD
--- NOTE | 2017-08-22 10:29 | OP ---
PROCEDURE DATE: 08/11/2017 PREOPERATIVE DIAGNOSIS: Acute cholecystitis - cholelithiasis. POSTOPERATIVE DIAGNOSIS: Acute cholecystitis - cholelithiasis. PROCEDURE: 08/11/2017 is a laparoscopic cholecystectomy with intraoperative cholangiogram. SURGEON: Yg Pérez MD FLOUR BLENDER HELPER: Cristopher Chery DO, PGY. SECOND DELIVERY CREW WORKER: Mark Cobb DO, PGY1 BEEF TRIMMER: Dr. Scott Ferguson DO ANESTHESIA: General endotracheal - Marcaine 0.5 - 20 ml. OPERATIVE INDICATIONS: The patient is a 37-year-old [place]oroast[place] female, who is seen in the Emergency Room with an acute recurrent attack of gallstones with cholecystitis and an elevated white count with liver function elevation. She is admitted at that point to the attending physician Dr. Anmol Barton and this consult was requested and discussion held with the patient and her and she is insistent upon having this removed at this time. 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 Risks, benefits and the alternatives with their anticipated outcomes were discussed and the patient signs the informed consent with her at present. The was initially reluctant to admit the patient until we discussed it with his insurance company and finding out because of the emergent nature that the policy is in effect despite the fact this institution did not have a contract with the insurance company. OPERATIVE NOTE: The patient is brought to the operating room, identified by her wrist band, undergoes time-out procedure and was then placed on the table in a supine manner. Following the induction of general anesthesia, the abdomen was prepped with Betadine line and aseptically draped, sequential compression devices are placed on the lower extremities for venous thromboembolism prophylaxis. The umbilicus was elevated on towel clips, infiltrated with the bupivacaine as all the port sites and incision made and a Veress needle inserted into the peritoneal cavity and the abdomen insufflated with carbon dioxide gas to 14 mmHg pressure. The needle was removed, replaced with a 12 mm blunt port (Visiport) and the peritoneum was then entered under direct vision and the obturator removed along with the scope. The abdomen is now explored demonstrating an inflammatory reaction to the right upper quadrant with recurring attacks and under direct vision, another 12-mm port was placed on the right subxiphoid location and two 5 mm ports placed in the right upper quadrant at the level of the umbilicus. The patient was then placed in a reverse Trendelenburg position and rotated then to the left lateral position. The adhesions to the gallbladder are now carefully lysed with cautery and bluntly stripped and the gallbladder grasped with Prestige clamps and the isaias hepatis dissected free from and the content of the gallbladder aspirated and approximately 120 mL of mildly turbid fluid was encountered which is then submitted to pathology for culture aerobically and anaerobically. The cystic duct is now dissected free with dense adhesions surrounding same and requiring meticulous careful technique at this point. The proximal cystic duct is doubly hemoclipped, incised and intraoperative cholangiogram performed demonstrating contrast in the duodenum. The catheter was removed, doubly hemoclipped and the cystic duct transected and the critical view of safety visualized with the artery in direct vision and this is dissected free and doubly hemoclipped and then transected. The gallbladder was carefully dissected free from the liver bed utilizing electrocoagulated current for hemostasis and the gallbladder once removed, is placed in an EndoCatch and brought out through the subxiphoid port. The gallbladder was examined on removal demonstrating chronic cholecystitis and an acute impacted stone in the neck of the gallbladder. The port was returned. The patient placed level supine and the abdomen lavage with normal saline solution until return is completely clear and Endo Avitene was placed into the hepatorenal space of Cheung. The exit closure device utilized with #1 PDS suture for interrupted closure of the skin, was closed with Monocryl subcuticular with cyanoacrylate glue and bandage placed over same. The patient is awakened, extubated and transported to the recovery room in a satisfactory condition. Sponge, instrument and suture count were verified as correct at the end of the procedure. Estimated blood loss during this procedure was less than 20 mL of blood. This dictation will be electronically signed without being read. The surgical assistants were present throughout and we were extremely helpful in the dissection and removal of the gallbladder as well as providing exposure throughout the entire procedure. Thank you very much. Yg Pérez MD
== END 2017-08-13 12:01 | disposition home or self-care (01) | DRG 419 ==
LOC: ED 02:41 → ERH 06:16 → 5RSO 08:11 → OBSVTOIN 08-12 07:45
PROVIDERS: ADMIT Internal Medicine; ATTEND Internal Medicine
PROC: BF101ZZ Fluoroscopy of Bile Ducts using Low Osmolar Contrast (ICD-10-PCS; 2017-08-11)
PROC: 0FT44ZZ Resection of Gallbladder, Percutaneous Endoscopic Approach (ICD-10-PCS; principal; 2017-08-11 10:30)
DX: K80.00 Calculus of gallbladder with acute cholecystitis without obstruction (principal); R50.82 Postprocedural fever; Z90.49 Acquired absence of other specified parts of digestive tract